=== PATIENT | female | born 1990 | race Caucasian/White ===

== ENCOUNTER 2016-11-30 13:33 | Day surgery (SDC) | payer OTHER ==
[~2016-11-30] VITALS: Ht 167.6 cm; Wt 47.4 kg
[2016-11-30 14:03] VITALS: BP 116/72; PULSE 89; TEMP 99.1
[2016-11-30] MEDS ORDERED: ZANTAC 150MG T150 MG PO (14:09)
[2016-11-30] MEDS ORDERED: ZOFRAN8 MG PO (14:10)
[2016-11-30] MEDS ORDERED: PRILOSEC 20MG20 MG PO (14:11)
[2016-11-30 15:15] VITALS: BP 116/72; PULSE 72; TEMP 98.3
[2016-11-30 15:30] VITALS: BP 115/77; PULSE 79
[2016-11-30 15:45] VITALS: BP 108/74; PULSE 57
[2016-11-30 15:46] VITALS: BP 111/77; PULSE 76
== END 2016-11-30 16:15 | disposition home or self-care (01) ==
LOC: SDCO 13:33
DX: K29.30 Chronic superficial gastritis without bleeding (principal); K21.9 Gastro-esophageal reflux disease without esophagitis; K30 Functional dyspepsia; D64.9 Anemia, unspecified
CPT/HCPCS: OP; J2250; J2405; J3010; J7030

== ENCOUNTER → 2016-12-18 | Outpatient (CLI) | payer OTHER ==
[~2016-12-18] MED LIST: PRILOSEC 20MG20 MG PO; ZANTAC 150MG T150 MG PO; ZOFRAN8 MG PO
== END ==
LOC: COL.RAD
DX: R12 Heartburn (principal); R14.0 Abdominal distension (gaseous)
CPT/HCPCS: A9537